=== PATIENT | female | born 1980 ===

== ENCOUNTER 2019-09-06 11:32 | Outpatient (RCR) | payer SELFPAY ==
--- NOTE | 2019-09-06 12:43 | History & Physical ---
History and Physical History & Physicial cc: Hyperbaric Oxygen Therapy Referral HPI: This is a healthy 39 y/o woman who had a history of abdominal wall laxity and excess skin with a large diastasis. She presented to my office for consultation for abdominoplasty. During the examination I palpated a wide abdominal diastasis that measured approximately 10cm and also an umbilical hernia. She was sent to my general surgery colleague Dr. Jaelyn Holt for evaluation and to plan a joint operation. She had a CT scan performed which revealed a small umbilical hernia approximately 1 cm and a 5.5cm diastasis. On 08/30/2019 the patient underwent an abdominoplasty with pubic lift and a hernia repair performed by my colleague. Intra-operatively the patient was found to have 3 small umbilical hernias and a second large hernia approximately 2 cm above the umbilicus to the right of midline with a large amount of intra- abdominal fat that was protruding out of the hernia and filling the subcutaneous space. The intra-abdominal fat had been compressing the subcutaneous fat and thinned it. The hernias were repaired and the rest of the abdominoplasty surgery was successful without any complications. The area where the subcutaneous fat had been attenuated due to pressure ended up at the bottom of the abdominoplasty flap. The tissues were handled very gently during the surgery but because of the thinness of the subcutaneous fat at the most distal end of the flap, hyperbaric oxygen therapy was discussed with the patient to aid in wound healing prophylatically. The flap currently looks well perfused and healthy. The patient was unable to have this treatment done at [place] so I referred her to Dr. Langley at the [facility] for evaluation and possibly treatment. PMHx: none PSHx: see above Meds: Keflex, Tylenol, Allergies: none Family History: none Social Hx: The patient does not smoke, drink, or use drugs O: On physical exam the patient is alert and oriented in NAD Abdomen: soft, nt, nd, s/p abdominoplasty. Skin flap is well perfused and healthy. Incision c/d/i and covered with steri-strips HANSA X3 = serous A/P: Pt s/p abdominoplasty with pubic lift and repair of multiple hernias referred to the [facility] for evaluation for Hyperbaric Oxygen Therapy to assist prophylactically in wound healing. Currently pt is healing well without any complications and skin and flap are healthy. Pt knows she will need a CXR prior to any treatment. Please feel free to contact me with any questions. Jessie Molina MD Sep 06, 2019 12:42
== END 2019-09-14 | disposition home or self-care (01) ==
LOC: WCC 11:32
DX: T86.821 Skin graft (allograft) (autograft) failure (principal)
CPT/HCPCS: G0277 ×3